=== PATIENT | male | born 1965 | race Caucasian/White ===

== ENCOUNTER 2020-07-30 16:31 | Emergency (ER) | payer OTHER | END 2020-07-30 18:20 | disposition home or self-care (01) | LOC: ERS 16:31 | DX: Z04.1 Encounter for examination and observation following transport accident (principal); F17.200 Nicotine dependence, unspecified, uncomplicated; F17.220 Nicotine dependence, chewing tobacco, uncomplicated | CPT/HCPCS: 99284 ==